=== PATIENT | female | born 1970 | race Caucasian/White ===

== ENCOUNTER 2019-03-02 07:56 | Emergency (ER) | payer OTHER ==
[~2019-03-02] VITALS: Ht 165.1 cm; Wt 65.8 kg
[2019-03-02] MEDS ORDERED: SODIUM CHLORIDE 0.9% 1000ML 1,000 ML IV STA (08:15)
[2019-03-02 08:26] LABS: BASOPHILS % 0.7 % (0.0-1.0); EOSINOPHILS % 0.4 % (0.0-6.0); LYMPHOCYTES # (AUTO) 1.7 (1.0-3.2); LYMPHOCYTES % 37.9 % (18.0-39.1); MEAN CORPUSCULAR HEMOGLOBIN 31.1 pg (28-32); MEAN CORPUSCULAR HGB CONC 34.1 g/dL (31-35); MEAN CORPUSCULAR VOLUME 91.1 fL (81-99); MONOCYTES # (AUTO) 0.4 (0.2-0.8); MONOCYTES % 8.6 % (4.4-11.3); NEUTROPHILS # (AUTO) 2.4 (2.1-6.9); NEUTROPHILS % 52.2 % (38.7-80.0); PLATELET COUNT 299 x10e3/uL (140-360); RED CELL DISTRIBUTION WIDTH 12.9 % (11.7-14.4)
[2019-03-02 08:27] LABS: BILIRUBIN,URINE NEGATIVE (NEGATIVE); CLARITY,URINE CLOUDY (CLEAR); COLOR,URINE YELLOW (YELLOW); LEUKOCYTE ESTERASE ,URINE NEGATIVE (NEGATIVE); NITRITE,URINE NEGATIVE (NEGATIVE); PROTEIN,URINE DIPSTICK TRACE (NEGATIVE); URINE UROBILINOGEN 0.2 mg/dL (0.2 - 1)
[2019-03-02] MEDS ORDERED: KETOROLAC TROMETHAMINE 30 MG/ML VIAL IV NR (08:30)
[2019-03-02] MEDS ORDERED: BUPROPION HCL200 MG PO (08:32)
[2019-03-02 08:46] LABS: KETONES,URINE 2+ (NEGATIVE)
[2019-03-02 08:47] LABS: ALANINE AMINOTRANSFERASE 24 IU/L (0-55); ALBUMIN 3.9 g/dL (3.5-5.0); ALBUMIN/GLOBULIN RATIO 1.5 (0.8-2.0); ALKALINE PHOSPHATASE 33 IU/L (40-150); ANION GAP 19.7 mmol/L (8-16); BACTERIA,URINE FEW /HPF; BLOOD UREA NITROGEN 19 mg/dL (7-26); BUN/CREATININE RATIO 22 (6-25); CALCIUM 9.4 mg/dL (8.4-10.2); CARBON DIOXIDE 20 mmol/L (22-29); CHLORIDE 103 mmol/L (98-107); CREATINE KINASE 47 IU/L (29-168); CREATININE, SERUM 0.85 mg/dL (0.57-1.11); EPITHELIAL CELLS,URINE FEW /LPF; EST GLOMERULAR FILTRATION RATE > 60 ML/MIN (60-); GLUCOSE 123 mg/dL (74-118); POTASSIUM 3.7 mmol/L (3.5-5.1); RBC,URINE >50 /HPF (0-5); SODIUM 139 mmol/L (136-145); WBC,URINE (MAN) 0-5 /HPF (0-5)
[2019-03-02] MEDS ORDERED: ONDANSETRON HCL INJ 2MG/ML 2ML 2 MG/ML VIAL IV NR (09:00)
[2019-03-02] MEDS ORDERED: MORPHINE SULFATE INJ 4 MG/ML INJ 1ML ONE (09:10)
[2019-03-02] MEDS ORDERED: MORPHINE SULFATE INJ 4 MG/ML INJ 1ML IV ONE (09:15)
--- NOTE | 2019-03-02 10:58 | Diagnostic Imaging Report ---
CT of the abdomen and pelvis, without contrast, 03/02/2019. History: Left flank pain. Comparison: None available. Technique: Multidetector CT scanning of the abdomen and pelvis was performed from the level of the lung bases to the inferior pubic rami without intravenous or oral contrast. Coronal and sagittal multiplanar reformations were obtained. RADIATION DOSE: Total DLP: 261 mGy*cm Dose modulation, iterative reconstruction, and/or weight based adjustment of the mA/kV was utilized to reduce the radiation dose to as low as reasonably achievable. Discussion: Examination is limited without contrast. Lung bases: No visualized abnormalities. Abdomen: A 2 mm stone is present in the lower pole of the left kidney. There is mild left hydronephrosis and mild dilatation of the proximal left ureter. The mid and distal left ureter is obscured by bowel distally. A 4 mm calcification is present in the region of the left UV junction. Multiple additional small calcific effusions are present within the pelvis bilaterally suggestive of phleboliths. There is no right hydronephrosis or right renal calculus. The liver, gallbladder, biliary tree, spleen, pancreas, and adrenal glands are unremarkable. The abdominal aorta is within normal limits. There is no bowel dilatation. Appendectomy clips are present. There is no evidence of adenopathy or free fluid. Pelvis: The bladder, uterus, adnexa are unremarkable. There is no evidence of free fluid or adenopathy. Bones and soft tissues: Degenerative changes are present throughout the lumbar spine without evidence of lytic or sclerotic lesion. There is grade 1 spondylolisthesis of L5 on S1 with bilateral L5 spondylolysis. IMPRESSION: Probable 4 mm stone at the left UV junction causing mild left hydronephrosis. No stones seen on the right. Signed by: Scottie Salinas on 03/02/2019 10:55 AM
[2019-03-02] MEDS ORDERED: SODIUM CHLORIDE 0.9% 1000ML 1,000 ML IV SCH (11:15)
[2019-03-02] MEDS ORDERED: TYLENOL WITH C1 EACH PO (11:18)
[2019-03-02] MEDS ORDERED: ULTRAM50 MG PO (11:18)
[2019-03-02] MEDS ORDERED: FENTANYL CITRATE/PF 100MCG/2 ML INJ IV ONE (11:30)
[2019-03-02] MEDS ORDERED: HYDROCODONE/APAP 10MG-325MG TAB PO NR (12:15)
== END 2019-03-02 12:44 | disposition home or self-care (01) ==
LOC: ER 07:56
DX: M54.5 Low back pain (principal); R30.0 Dysuria; R11.0 Nausea; N20.0 Calculus of kidney
CPT/HCPCS: 36415; 74176; 80053; 81001; 82550; 82553; 84484; 85025; 99284; J1885; J2270; J2405; J3010; J7030